=== PATIENT | female | born 1955 | race Caucasian/White ===

== ENCOUNTER 2020-02-15 14:21 | Inpatient (IN) | payer MEDICARE, MEDICAID, SELFPAY ==
[2020-02-15 14:24] VITALS: BP 188/119; PULSE 75; RESP 16; TEMP 37; O2SAT 99; BMI 44.3
--- NOTE | 2020-02-15 14:36 | ECG_ITS ---
Measurements Intervals [place] Rate: 72 P: -13 NH: 160 QRS: -22 QRSD: 93 T: 2 QT: 414 QTc: 453 SINUS RHYTHM INFERIOR MYOCARDIAL INFARCTION , PROBABLY OLD WITH POSTERIOR EXTENSION [40+ ms Q WAVE AND/OR ST/T ABNORMALITY IN II/aVFPROMINE No previous ECG available for comparison Electronically Signed On 02-16-2020 8:00:11 CDT by Tim Flaherty M.D. [email or web address]
[2020-02-15 14:59] LABS: Basophils % 0.4 %; Eosinophils % 0.2 %; Hemoglobin 15.4 g/dL (11.5-15.3); Lymphocytes # 2.4 10^3/uL (0.8-4.8); Mean Corpuscular HGB Conc 33.5 g/dL (30.0-36.0); Mean Corpuscular Hemoglobin 28.9 pg (28.0-34.0); Mean Corpuscular Volume 86.5 fL (81-99); Mean Platelet Volume 9.5 fL (7.4-10.4); Monocytes # 0.6 10^3/uL (0.2-0.9); Monocytes % 6.3 %; Neutrophils # 6.8 10^3/uL (1.8-7.7); Neutrophils % 68.9 %; Nucleated Red Blood Cells % 0 %; Platelet Count 230 10^3/cmm (130-400); Red Blood Count 5.32 10^6/uL (4.1-5.3); Red Cell Distribution Width 13.2 % (12.1-15.1); White Blood Count 9.8 10^3/uL (4.0-10.0)
--- NOTE | 2020-02-15 15:11 | W.ED.PSYCH ---
HPI - Psych General: Chief Complaint: Psychiatric Symptoms Stated Complaint: SI Time Seen by Provider: 02/15/20 14:23 Source: patient Mode of arrival: EMS History of Present Illness: HPI Narrative: This 64-year-old female patient with a history of depression presents to the emergency department with concerns of worsening depression and wanting to hurt her neighbor. She claims that every night for the last month or so her neighbor climbs on his roof and is making noise and has threatened to shoot people who he claims are coming to bother him. He has not threatened this patient. Last night she says she saw the neighbor on his roof and she called law enforcement, however when they arrived they did not see him and they left. She is not sleeping and would like an adjustment of her antidepressants. She takes paroxetine 40 mg daily. MD complaint: feels depressed Onset (ago): day(s) (1) Duration: constant and getting worse History of same: Yes Relieving factors: none Exacerbating factors: other (her neighbor) Associated psychiatric symptoms: depression and homicidal ideation Associated symptoms: Reports homicidal ideation Treatments prior to arrival: none Review of Systems General: Reports: 10 or more systems reviewed and unremarkable except in HPI and below Const: Denies: fever, chills or body aches Eyes: Denies: change in vision or blurry vision ENMT: Denies: throat pain, enlarged tonsils, painful swallowing, hoarseness, mouth pain or swelling of lips/tongue Card: Reports: chest pain; Denies: palpitations, irregular heart rhythm, edema or swelling of feet/ankles Resp: Denies: shortness of breath, productive cough or non-productive cough GI: Denies: abdominal pain, nausea or vomiting : Denies: flank pain, difficulty urinating, painful urination, urinary frequency, urinary urgency or urinary hesitancy Musc: Denies: neck pain, back pain or extremity swelling Skin/Breast: Denies: rash, itching or redness Neuro: Denies: headache, numbness in extremities or weakness in extremities Psych: Reports: homicidal ideation Endo: Denies: excessive urination, excessive thirst or tired all the time PFSH ED PFSH: Social History Smoking and tobacco status: never smoked Physical Exam Const: COMMON NORMALS: no apparent distress, average body habitus, oriented x3, no limitations, healthy appearing, alert and well nourished HENMT: COMMON NORMALS: normocephalic, head/scalp atraumatic and moist oral mucous membranes HEAD & SCALP: normocephalic and atraumatic Eye: COMMON NORMALS: PERRL, EOMs intact bilaterally, conjunctivae normal and no scleral icterus CONJUNCTIVA: Yes conjunctivae normal PUPIL: Yes PERRL Neck/C-Spine: COMMON NORMALS: full ROM, supple, no meningeal signs, no JVD and no carotid bruits Chest: COMMONS NORMALS: inspection of chest normal and palpation of chest normal Resp: COMMON NORMALS: normal respiratory effort, no retractions, no use of accessory muscles, clear to auscultation bilaterally and percussion normal AUSCULTATION: clear to auscultation bilaterally PERCUSSION: percussion normal Cardio: COMMON NORMALS: no JVD, regular rate, regular rhythm, S1 normal heart sound, S2 normal heart sound, no gallops, no clicks, no murmurs, no rub and peripheral pulses 2+ throughout RATE: regular rate RHYTHM: regular rhythm HEART SOUNDS: S1 normal and S2 normal PERIPHERAL PULSES: pulses 2+ throughout GI: COMMON NORMALS: normal to inspection, nondistended, normoactive bowel sounds, soft to palpation, non-tender, no hepatosplenomegaly, no masses and no bruits PALPATION: Yes soft and Yes no hepatosplenomegaly : COMMON NORMALS: Yes no CVA tenderness BLADDER/KIDNEY EXAM: Yes no CVA tenderness Back/Pelvis: COMMON NORMALS: no CVA tenderness Extremity: COMMON NORMALS: normal to inspection, full ROM, normal capillary refill, no calf tenderness and no pedal edema Neuro: COMMON NORMALS: oriented x3 SENSORIUM/ORIENTATION: Yes alert MENINGEAL SIGNS: Yes no meningeal signs Skin: COMMON NORMALS: no rashes or lesions noted, no wounds, skin turgor normal, no jaundice, no petechiae and no mottling GENERAL SKIN EXAM: no rashes or lesions noted and turgor normal MDM - Psych MDM Narrative: Medical decision making narrative: 64-year-old female patient who is independent with her ADLs and presents to the emergency department with concerns of worsening depression. She was medically cleared and is admitted to the neuropsychiatric unit for further evaluation and management Medical Records: Attestation: I reviewed the patient's medical records. Lab Data: Labs: Lab Results 02/15/20 02/15/20 02/15/20 Range/Units 14:53 14:53 15:10 WBC 9.8 (4.0-10.0) 10^3/ uL RBC 5.32 H (4.1-5.3) 10^6/u L Hgb 15.4 H (11.5-15.3) g/dL Hct 46.0 (37.0-47.0) % MCV 86.5 (81-99) fL MCH 28.9 (28.0-34.0) pg MCHC 33.5 (30.0-36.0) g/dL RDW 13.2 (12.1-15.1) % Plt Count 230 (130-400) 10^3/c mm MPV 9.5 (7.4-10.4) fL Neut % (Auto) 68.9 % Lymph % (Auto) 24.0 % Wetzel % (Auto) 6.3 % Eos % (Auto) 0.2 % Baso % (Auto) 0.4 % Neut # (Auto) 6.8 (1.8-7.7) 10^3/u L Lymph # (Auto) 2.4 (0.8-4.8) 10^3/u L Wetzel # (Auto) 0.6 (0.2-0.9) 10^3/u L Eos # (Auto) 0.0 (0.0-0.8) 10^3/u L Baso # (Auto) 0.0 (0.0-0.1) 10^3/u L Nucleated RBC % (a uto) 0 % Nucleated RBCs # 0.0 /100WBC Sodium 140 (136-145) mmol/L Potassium 4.0 (3.5-5.1) mmol/L Chloride 101 (98-107) mmol/L Carbon Dioxide 24 (22-29) mmol/L Anion Gap 19.0 (5-19) BUN 7 L (8-23) mg/dL Creatinine 1.1 H (0.5-0.9) mg/dL GFR Calculation 49.7 L (90-130) mL/min Glucose 113 (65-115) mg/dL Calculated Osmolal ity 287 (285-295) mOsm/k g Calcium 10.3 (8.5-10.5) mg/dL Total Bilirubin 1.1 (0.15-1.2) mg/dL AST 40 H (0-32) U/L ALT 33 (0-33) U/L Alkaline Phosphata se 61 (35-105) IU/L Total Protein 8.2 (6.6-8.7) g/dL Albumin 4.7 (3.5-5.2) g/dL Globulin 3.5 (1.3-4.6) g/dL TSH 1.65 (0.27-4.20) uIU/ mL Urine Color Yellow (Yellow) Urine Appearance Clear (CLEAR) Urine pH 5 (5-7) Ur Specific Gravit y 1.025 (1.005-1.030) Urine Protein 1+ H (Negative) Urine Glucose (UA) Norm (Normal) Urine Ketones 1+ H (Negative) Urine Blood Neg (Negative) Urine Nitrate Negative (Negative) Urine Bilirubin 1+ H (NEGATIVE) Urine Urobilinogen 1 H (Negative) mg/dL Ur Leukocyte Hodan ase Trace H (Negative) Urine RBC None (0-2) /hpf Urine WBC 0-4 H (0-5) /hpf Ur Squamous Epith Cells 5-10 H (0-5) Ur Transition Epit h Cell 5-10 /hpf Amorphous Sediment 1+ Urine Bacteria Trace (NONE) Hyaline Casts 10-15 H Urine Mucus Trace Salicylates < 0.3 L (3-10) mg/dL Urine Opiates Scre en (Negative) ng/mL Acetaminophen < 5.0 L (10-30) ug/mL Ur Barbiturates Sc reen (Negative) ng/mL Ur Phencyclidine S crn (Negative) ng/mL Ur Amphetamines Sc reen (Negative) ng/mL U Benzodiazepines Scrn (Negative) ng/mL Urine Cocaine Scre en (Negative) ng/mL U Marijuana (THC) Screen (Negative) ng/mL Ethyl Alcohol < 10 (0-10) mg/dL 02/15/20 Range/Units 15:10 WBC (4.0-10.0) 10^3/ uL RBC (4.1-5.3) 10^6/u L Hgb (11.5-15.3) g/dL Hct (37.0-47.0) % MCV (81-99) fL MCH (28.0-34.0) pg MCHC (30.0-36.0) g/dL RDW (12.1-15.1) % Plt Count (130-400) 10^3/c mm MPV (7.4-10.4) fL Neut % (Auto) % Lymph % (Auto) % Wetzel % (Auto) % Eos % (Auto) % Baso % (Auto) % Neut # (Auto) (1.8-7.7) 10^3/u L Lymph # (Auto) (0.8-4.8) 10^3/u L Wetzel # (Auto) (0.2-0.9) 10^3/u L Eos # (Auto) (0.0-0.8) 10^3/u L Baso # (Auto) (0.0-0.1) 10^3/u L Nucleated RBC % (a uto) % Nucleated RBCs # /100WBC Sodium (136-145) mmol/L Potassium (3.5-5.1) mmol/L Chloride (98-107) mmol/L Carbon Dioxide (22-29) mmol/L Anion Gap (5-19) BUN (8-23) mg/dL Creatinine (0.5-0.9) mg/dL GFR Calculation (90-130) mL/min Glucose (65-115) mg/dL Calculated Osmolal ity (285-295) mOsm/k g Calcium (8.5-10.5) mg/dL Total Bilirubin (0.15-1.2) mg/dL AST (0-32) U/L ALT (0-33) U/L Alkaline Phosphata se (35-105) IU/L Total Protein (6.6-8.7) g/dL Albumin (3.5-5.2) g/dL Globulin (1.3-4.6) g/dL TSH (0.27-4.20) uIU/ mL Urine Color (Yellow) Urine Appearance (CLEAR) Urine pH (5-7) Ur Specific Gravit y (1.005-1.030) Urine Protein (Negative) Urine Glucose (UA) (Normal) Urine Ketones (Negative) Urine Blood (Negative) Urine Nitrate (Negative) Urine Bilirubin (NEGATIVE) Urine Urobilinogen (Negative) mg/dL Ur Leukocyte Hodan ase (Negative) Urine RBC (0-2) /hpf Urine WBC (0-5) /hpf Ur Squamous Epith Cells (0-5) Ur Transition Epit h Cell /hpf Amorphous Sediment Urine Bacteria (NONE) Hyaline Casts Urine Mucus Salicylates (3-10) mg/dL Urine Opiates Scre en Negative (Negative) ng/mL Acetaminophen (10-30) ug/mL Ur Barbiturates Sc reen Negative (Negative) ng/mL Ur Phencyclidine S crn Positive H (Negative) ng/mL Ur Amphetamines Sc reen Negative (Negative) ng/mL U Benzodiazepines Scrn Negative (Negative) ng/mL Urine Cocaine Scre en Negative (Negative) ng/mL U Marijuana (THC) Screen Negative (Negative) ng/mL Ethyl Alcohol (0-10) mg/dL Discharge Plan Discharge Patient Disposition: Admitted As Inpatient Admit Provider: Balbir Escobedo Clinical Impression: Depression Condition: Stable Interventions: ED Discharge Assessment Last Done: 02/15/20 18:02 Discharge Date/Time: 02/15/20 18:02 Coding Level of Care Code ED Full Stack Software Developer for Bhavin Fwd Exam Comprehensive
[2020-02-15 15:22] LABS: Alanine Aminotransferase 33 U/L (0-33); Albumin Level 4.7 g/dL (3.5-5.2); Alkaline Phosphatase 61 IU/L (35-105); Aspartate Amino Transferase 40 U/L (0-32); Blood Urea Nitrogen 7 mg/dL (8-23); Calcium 10.3 mg/dL (8.5-10.5); Carbon Dioxide 24 mmol/L (22-29); Chloride 101 mmol/L (98-107); Globulin 3.5 g/dL (1.3-4.6); Glomerular Filtration Rate 49.7 mL/min (90-130); Glucose 113 mg/dL (65-115); Osmolality Calculated 287 mOsm/kg (285-295); Sodium 140 mmol/L (136-145); Thyroid Stimulating Hormone 1.65 uIU/mL (0.27-4.20); Total Bilirubin 1.1 mg/dL (0.15-1.2); Total Protein 8.2 g/dL (6.6-8.7)
[2020-02-15 15:36] LABS: Bilirubin Urine 1+ (NEGATIVE); Blood Urine Neg (Negative); Glucose Urine UA Norm (Normal); Ketones Urine 1+ (Negative); Nitrate Urine Negative (Negative); Protein Urine 1+ (Negative); Specific Gravity, Urine 1.025 (1.005-1.030); Urine Appearance Clear (CLEAR); Urine Color Yellow (Yellow); pH Urine 5 (5-7)
[2020-02-15 15:37] LABS: Add Urine Microscopic? YES; Leukocyte Esterase Urine Trace (Negative); Urobilinogen Urine 1 mg/dL (Negative)
[2020-02-15 15:38] LABS: Amphetamines Screen Urine Negative (Negative); Barbiturates Screen Urine Negative (Negative); Benzodiazepines Screen Urine Negative (Negative); Cocaine Screen Urine Negative (Negative); Opiate Screen Urine Negative (Negative); PCP Screen Urine Positive (Negative); THC Screen Urine Negative (Negative)
[2020-02-15 15:41] LABS: Add Urine Culture? No; Amorphous Sediment Urine 1+; Bacteria Urine TRACE; Mucus Urine TRACE; WBC Urine 0-4 /hpf (0-5)
[2020-02-15 15:48] LABS: Acetaminophen < 5.0 ug/mL (10-30); Alcohol Level < 10 mg/dL (0-10); Salicylate < 0.3 mg/dL (3-10)
[2020-02-15 16:05] VITALS: BP 135/77; PULSE 71; RESP 18; O2SAT 93
[2020-02-15 17:25] VITALS: BP 132/81; PULSE 86; RESP 18; TEMP 37.1; O2SAT 93
[2020-02-15] MEDS: trazodone 50 mg Tablet PO (20:50)
[2020-02-15 20:55] VITALS: BP 118/73; PULSE 78; RESP 18; TEMP 37.5; O2SAT 95
[2020-02-15] MEDS: blistex lip oint 7 gm Tube 1 APPLIC TOPICAL (23:19)
[2020-02-16 06:00] VITALS: BP 105/65; PULSE 85; RESP 21; TEMP 37; O2SAT 94
[2020-02-16] MEDS: levothyroxine 88 mcg Tablet PO (07:53)
[2020-02-16] MEDS: metoprolol tartrate 50 mg Tablet PO ×2 (09:37→17:28)
[2020-02-16] MEDS: pantoprazole DR 40 mg Tablet PO (09:37)
[2020-02-16] MEDS: atorvastatin 40 mg Tablet PO (09:37)
[2020-02-16] MEDS: ergocalciferol (vitamin D2) 50,000 Unit Capsule 50000 UNIT PO (09:42)
--- NOTE | 2020-02-16 09:54 | PM.NHP ---
Providers/Chief Complaint Admitting Physician: Balbir Escobedo MD Primary Care Provider: Henry Kelly MD Chief Complaint: DEPRESSION HPI NPU History of Present Illness Chief complaint: ?I could take hydroxyzine. About 20 pills would do it.? History of present illness: Pauline Coker is a 64-year-old woman who was brought to the emergency room by police after she complained that there was a man on the roof next door to her shouting obscenities at her. She reports daily suicidal ideation. She knows that she could kill herself by taking hydroxyzine. She says that 20 pills would kill her and she has more than 100 pills at home. She denies presence of auditory or visual hallucinations. She denies feelings of hopelessness or worthlessness. She is bored. But she has been hedonic capacity. She reports difficulty sleeping. She says that she weighs in TV goes off at midnight. When she goes to sleep and wakes up at noon the next morning. She is in the active care of psychiatrist Rachel Hernandez. She says the only antidepressant that helped her Paxil and Cymbalta. She is taking Paxil 40 mg daily at this time. She enjoys getting up in the morning and watching TV all day. She enjoys reality shows. She says she is tired of living where she lives. She has nothing to do and she has no friends. Her primary hope during this admission is that the psychiatric social worker supervisor will find her some place to live and some more help. She says she would like to live in a [facility] or a care home. However she values her independence and takes pride in the fact that she goes wherever she wants when she wants to. 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 She makes vague reference to a history of alcohol abuse. She does admit having purchased a bottle of vodka last week. Her urine drug screen was negative for alcohol on presentation. She is does say that she takes a drink now and then but does not feel that she has an alcohol problem now. She denies signs or symptoms of alcohol withdrawal. Urine drug screen was also positive for PCP but she is confused about where that could?ve come from and she denies all illicit drug use. ER report: HPI Narrative: This 64-year-old female patient with a history of depression presents to the emergency department with concerns of worsening depression and wanting to hurt her neighbor. She claims that every night for the last month or so her neighbor climbs on his roof and is making noise and has threatened to shoot people who he claims are coming to bother him. He has not threatened this patient. Last night she says she saw the neighbor on his roof and she called law enforcement, however when they arrived they did not see him and they left. She is not sleeping and would like an adjustment of her antidepressants. Laboratory Tests 02/15/20 02/15/20 14:53 15:10 Urine Opiates Screen Negative Ur Barbiturates Screen Negative Ur Phencyclidine Scrn Positive H Ur Amphetamines Screen Negative U Benzodiazepines Scrn Negative Urine Cocaine Screen Negative U Marijuana (THC) Screen Negative Ethyl Alcohol < 10 Mental health history: She has ?2 or 3? previous admissions. She said that one time she was addicted to Xanax. She didn?t know getting addicted to Xanax but there she was and that how she wound up in the hospital. She has no history of seen a counselor but she does get medications from her local nurse practitioner and her monthly visit with her psychiatrist. Family psychiatric history is positive for her father being an alcoholic. Meds NPU Home Medications Medication Instructions Recorded Confirmed Type dicyclomine 20 mg PO Q6H PRN 02/15/20 02/15/20 History ergocalciferol (vitamin D2) 50,000 unit PO Q7D 02/15/20 02/15/20 History exenatide microspheres [Bydureon] 2 mg SUBCUT Q7D 02/15/20 02/15/20 History hydroxyzine HCl 50 mg PO QID PRN 02/15/20 02/15/20 History levothyroxine 88 mcg PO DAILY 02/15/20 02/15/20 History metoprolol tartrate 50 mg PO BID 02/15/20 02/15/20 History pantoprazole 40 mg PO DAILY 02/15/20 02/15/20 History paroxetine HCl 40 mg PO DAILY 02/15/20 02/15/20 History primidone 50 mg PO BID 02/15/20 02/15/20 History rosuvastatin 10 mg PO DAILY 02/15/20 02/15/20 History Allergies Allergy/AdvReac Type Severity Reaction Status Date / Time No Known Allergies Allergy Unverified 02/15/20 15:28 PFSH NPU PFSH: Social History Smoking and tobacco status: never smoked Other Psychiatric History: Other Psychiatric History: Mental health history: She has ?2 or 3? previous admissions. She said that one time she was addicted to Xanax. She didn?t know getting addicted to Xanax but there she was and that how she wound up in the hospital. She has no history of seen a counselor but she does get medications from her local nurse practitioner and her monthly visit with her psychiatrist. Family psychiatric history is positive for her father being an alcoholic. Social history: Patient grew up in [place] and is a high school graduate. She has 2 daughters. The oldest lives in [place] and has no contact with the patient. The youngest lives in [place] and has no contact with the patient. ?Their management me because things happen to them when they were young. Everyone has things happen to them.? Her best friend is Karen who is the quality assurance manager of the apartment building in which she lives. Legal history: She was incarcerated for a DWI in 2014 according to public record. Mental Status Exam MSE Comments: ?I need a safe place to live.? ?I?ve had depression all my life.? ?I don?t sleep at all.? ?I live by myself. I do what I want.? Appearance: The patient is an obese woman appearing approximately her stated age. She is believed to be a reliable informant to the best of her ability. Hygiene is fair; no gross neurological deficits., gait is unremarkable; AIMS=0 Speech: Speech is of normal rate and rhythm and easily understood. Thought processes: Thought processes are concrete. Judgment is adequate for safety. Psychotic processes: There is no indication of guarding or paranoia. There is no attention to the internal stimuli. Auditory and visual hallucinations are denied. Judgment: Insight is poor with expectations and entitlement to that others will solve problems for her.. Problem solving skills are adequate for safety. Orientation: The patient is oriented to person, place time and situation. Memory: no deficits noted in immediate, intermediate, or remote spheres. Attention: The patient is alert and interpersonally engaged. Language: Verbalizations are coherent. Fund of knowledge: Fund of knowledge is poor. Affect/Mood: Affect is euthymic with a depressed mood. Positive suicidal ideation with potential plan. Affective range good Psychosis: perception impaired regularly through poor insight and cognitive deficit; reality testing intact. Vitals/I&O/Wt Last Vital Signs Temp 98.6 F 02/16/20 06:00 Pulse 85 02/16/20 06:00 Resp 21 H 02/16/20 06:00 BP 105/65 02/16/20 06:00 Pulse Ox 94 02/16/20 06:00 Weight last 48 hrs Weight 136.078 kg Data NPU : 02/15/20 14:53 02/15/20 14:53 A&P Additional A&P Information Diagnoses: Major depression?recurrent, moderate severity Assessment: Pauline Coker is a 64-year-old woman who reports making claims of considering suicide with a plan. However she delineates her symptoms of depression as being potentially resolvable simply by having a new place to live. Unfortunately, she has very little insight as to how she could resolve this problem and has a sense of entitlement that others should solve it for her. She feels that her antidepressant does provide some benefit but that the addition of medication may boost its effect. She was agreeable to the plan below. Due to the psychiatric conditions and treatment listed in the Assessment and Plan - the patient requires continued hospitalization. Will provide a safe and therapeutic environment for patient.. Will continue inpatient treatment to allow for medication adjustment and monitoring. Will continue q15 min safety checks. Will continue Paxil 40 mg daily. Will add risperidone 1 mg at bedtime and monitor for medication side effects. Monitor patient's mood, sleep, appetite, and behavior closely. Encourage patient to participate in individual and group therapeutic sessions on the [place]. Estimated length of stay 5 days The expected benefits and potential side effects of patient's psychiatric medications were discussed with the patient. The patient understands and consents to treatment.CRITERIA FOR DISCHARGE: stable on medications and no longer an imminent threat to self or other Involuntary Hold Information 96 Hour Hold: 96 Hour Involuntary Admission: No Attestations NPU Medical Necessity Statement*: patient will remain in the hospital another 2-3 nights to establish medication efficacy. Coding Level of Care Code Acute Wireless Sales Associate for Bhavin Mobley
[2020-02-16 13:29] VITALS: BP 113/73; PULSE 81; RESP 18; TEMP 36.8; O2SAT 95
[2020-02-16] MEDS: neomycin-poly-bacitracin oint 28 gm 1 APPLIC TOPICAL (17:28)
[2020-02-16 21:05] VITALS: BP 99/62; PULSE 77; RESP 20; TEMP 37.3; O2SAT 94
[2020-02-16] MEDS: risperiDONE 1 mg Tablet PO (21:06)
[2020-02-16] MEDS: PARoxetine 20 mg Tablet 40 MG PO (21:06)
--- NOTE | 2020-02-16 21:06 | PC.NURSE ---
Pt given scheduled paxil and risperdal.
[2020-02-17] MEDS: acetaminophen 325 mg Tablet 650 MG PO (01:39)
[2020-02-17 06:00] VITALS: BP 102/66; PULSE 80; RESP 20; TEMP 37.1; O2SAT 94
[2020-02-17] MEDS: pantoprazole DR 40 mg Tablet PO (08:27)
[2020-02-17] MEDS: levothyroxine 88 mcg Tablet PO (08:27)
[2020-02-17] MEDS: metoprolol tartrate 50 mg Tablet PO (08:27)
[2020-02-17] MEDS: atorvastatin 40 mg Tablet PO (08:27)
[2020-02-17] MEDS: neomycin-poly-bacitracin oint 28 gm 1 APPLIC TOPICAL (08:28)
--- NOTE | 2020-02-17 10:06 | PM.NDC ---
Diagnoses at Discharge Discharge Diagnosis (1) Adjustment disorder with mixed disturbance of emotions and conduct: Status: Acute Problem details: resolved Reason for Visit Reason for Visit: Reason For Visit: DEPRESSION Brief History: [address] [place] [address] History & Physical Report Signed Patient: Pauline Coker [facility]#: [id number] : 3Acct#:[id number] Age/Sex: 65 / FADM Date: 02/15/20 Loc: NPRoom/Bed: 124-1 Encounter Date: 02/16/[address]: Balbir Escobedo MD Report Number: [id number] Providers/Chief Complaint Admitting Physician: Balbir Escobedo MD Primary Care Provider: Henry Kelly MD Chief Complaint: DEPRESSION HPI NPU History of Present Illness Chief complaint: ?I could take hydroxyzine. About 20 pills would do it.? History of present illness: Pauline Coker is a 64-year-old woman who was brought to the emergency room by police after she complained that there was a man on the roof next door to her shouting obscenities at her. She reports daily suicidal ideation. She knows that she could kill herself by taking hydroxyzine. She says that 20 pills would kill her and she has more than 100 pills at home. She denies presence of auditory or visual hallucinations. She denies feelings of hopelessness or worthlessness. She is bored. But she has been hedonic capacity. She reports difficulty sleeping. She says that she weighs in TV goes off at midnight. When she goes to sleep and wakes up at noon the next morning. She is in the active care of psychiatrist Rachel Hernandez. She says the only antidepressant that helped her Paxil and Cymbalta. She is taking Paxil 40 mg daily at this time. She enjoys getting up in the morning and watching TV all day. She enjoys reality shows. She says she is tired of living where she lives. She has nothing to do and she has no friends. Her primary hope during this admission is that the case management social worker will find her some place to live and some more help. She says she would like to live in a assisted or a long term. However she values her independence and takes pride in the fact that she goes wherever she wants when she wants to. 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 She makes vague reference to a history of alcohol abuse. She does admit having purchased a bottle of vodka last week. Her urine drug screen was negative for alcohol on presentation. She is does say that she takes a drink now and then but does not feel that she has an alcohol problem now. She denies signs or symptoms of alcohol withdrawal. Urine drug screen was also positive for PCP but she is confused about where that could?ve come from and she denies all illicit drug use. ER report: HPI Narrative: This 64-year-old female patient with a history of depression presents to the emergency department with concerns of worsening depression and wanting to hurt her neighbor. She claims that every night for the last month or so her neighbor climbs on his roof and is making noise and has threatened to shoot people who he claims are coming to bother him. He has not threatened this patient. Last night she says she saw the neighbor on his roof and she called law enforcement, however when they arrived they did not see him and they left. She is not sleeping and would like an adjustment of her antidepressants. Hospital Course Discharge Summary Patient was admitted for a of individual and group therapies as part of the adult psychiatric unit protocol. She was provided a supportive requirement and a clinical assessment. She was found to be suffering primarily from adjustment disorder with poor problem-solving skills. It appears that she was in a difficult psychosocial situation and was wanting assistance. An fact, she has ongoing psychological therapy and the medications that she is being prescribed have been effective. Risperidone was provided on a when necessary basis at bedtime for accommodation of sleep and to improve antidepressant efficacy. It was well tolerated. By hospital day #3, she was free of all symptoms of depression. She denied having suicidal thoughts. Involuntary Hold Information 96 Hour Hold: 96 Hour Involuntary Admission: No Mental Status Exam MSE Comments: Discharge Mental Status Exam: Appearance: hygiene is good; no gross neurological deficits., gait is unremarkable; AIMS=0 Speech: Speech is of normal rate and rhythm and easily understood. Thought processes: Thought processes are Robert Lee. Judgment is adequate for safety. Associations: intact Psychotic processes: There is no indication of guarding or paranoia. There is no attention to the internal stimuli. Auditory and visual hallucinations are denied. Judgment: Insight is fair. Problem solving skills are adequate for safety. Orientation: The patient is oriented to person, place time and situation. Memory: no deficits noted in immediate, intermediate, or remote spheres. Attention: The patient is alert and interpersonally engaged. Language: Verbalizations are coherent. Fund of knowledge: Fund of knowledge is Poor. Affect/Mood: Affect is consistent with a euthymic mood. denied suicidal ideation Affective range is appropriate. Psychosis: perception unimpaired except through cognitive distortion And cognitive deficit; reality testing intact. Discharge Data Vitals: Last Vital Signs Temp 98.8 F 02/17/20 06:00 Pulse 80 02/17/20 06:00 Resp 20 H 02/17/20 06:00 BP 102/66 02/17/20 06:00 Pulse Ox 94 02/17/20 06:00 Discharge Plan Discharge Patient Disposition: Home, Self-Care Condition: Stable Prescriptions: New risperidone 1 mg Tablet 1 mg PO BEDTIME Qty: 30 RF: 4 Continued primidone 50 mg tablet 50 mg PO BID RF: 0 hydroxyzine HCl 50 mg tablet 50 mg PO QID PRN (Reason: Anxiety) RF: 0 levothyroxine 88 mcg tablet 88 mcg PO DAILY RF: 0 dicyclomine 20 mg tablet 20 mg PO Q6H PRN (Reason: Stomach Cramps) RF: 0 metoprolol tartrate 50 mg tablet 50 mg PO BID RF: 0 ergocalciferol (vitamin D2) 1,250 mcg (50,000 unit) capsule 50,000 unit PO Q7D RF: 0 paroxetine HCl 40 mg tablet 40 mg PO DAILY RF: 0 rosuvastatin 10 mg tablet 10 mg PO DAILY RF: 0 Bydureon 2 mg/0.65 mL pen injector 2 mg SUBCUT Q7D RF: 0 pantoprazole 40 mg Tablet,Delayed Release (Dr/Ec) 40 mg PO DAILY RF: 0 Discharge Orders: Discharge Order (Routine); Ordered 02/17/20 Ordered By: Reynaldo Grey Referrals: [facility] Psychologist [Other] - 02/23/20 4:00 am (continue your services with Rachel Humphreys clinical psychologist. An earlier appointment was scheduled. ) [facility] in [facility] [Other] (you will need to call about getting psychiatric medication mgmt and case mgmt. Your clinical psychologist's office suggested that you get your medications managed by [facility]. It was also suggested that you get a catalytic case operator from [facility]. It will be important to call as soon as possible about getting your services started. You will need a refill on your medications before a month is complete but you want to call about getting referral immediately upon discharge when you get home. There are walk-in hours usually on Tuesdays and but because of the COVID 19 issues you need to call [facility] for instructions. If needed, follow-up with your primary care provider for prescription refills until you are able to get seen for psychiatric medication management. ) Discharge Attestations NPU Time Spent in Discharge Care*: less than 30 min Coding Level of Care Code Acute Radio Intelligence Operator for Chg Fwd Diagnoses Adjustment disorder with mixed disturbance of emotions and conduct F43.25
[2020-02-17 10:30] VITALS: BP 102/66; PULSE 80; RESP 20; TEMP 37.1; O2SAT 94
--- NOTE | 2020-02-17 10:39 | PC.SOCIAL ---
Dimitry alejandre called. Trip ID #[id number]. miller supervisor time between 10:45am and 1:45pm.
--- NOTE | 2020-02-17 12:04 | PC.SOCIAL ---
checked on ride. [employer] said that class a truck driver will be here between 1:15-1:30 p.m. nurse's station was notified in order to give information to patient.
== END 2020-02-17 14:17 | disposition home or self-care (01) | DRG 882 ==
LOC: ER 17:38 → NP 17:38
PROVIDERS: Admitting Provider Psychiatry & Neurology Psychiatry; Emergency Provider Family Medicine; PCP Family Medicine; Visit Provider Psychiatry & Neurology Psychiatry
DX: F43.25 Adjustment disorder with mixed disturbance of emotions and conduct (principal); R45.851 Suicidal ideations
CPT/HCPCS: 12345; 36415; 80053; 80306; 80307; 81001; 84443; 85025; 93005; 99284; A9270

== ENCOUNTER 2020-03-26 15:45 | Inpatient (IN) | payer MEDICARE, MEDICAID, SELFPAY ==
[2020-03-26 15:57] VITALS: BP 121/84; PULSE 83; RESP 16; TEMP 37; O2SAT 94; BMI 44.3
[2020-03-26] MEDS: ziprasidone 20 mg/mL SDV 10 MG IM (16:31)
--- NOTE | 2020-03-26 16:43 | W.ED.PSYCH ---
HPI - Psych General: Chief Complaint: Psychiatric Symptoms Stated Complaint: HALLUCINATIONS Time Seen by Provider: 03/26/20 16:05 History of Present Illness: HPI Narrative: This patient is a 65-year-old female who lives at home alone. She presents today stating that she can hear people talking on her roof. Per police there is no one on her roof. She says that she called the ambulance herself to come here and find out if she is crazy . She was here several weeks ago with similar symptoms. She said she went home after 2 days because she wanted to be in her own house and be able to take a shower. She tells me now that she does not even care if she takes another shower. On her recent admission she was also suicidal. She has vague suicidal thoughts now but no specific plan that she will share with me. She denied any prior psychiatric history to me, however from reading her recent admission it appears that she does have longstanding psychiatric problems. complaint: other (Hallucinations and delusions) Onset (ago): unknown Duration: constant Relieving factors: none Exacerbating factors: none Associated psychiatric symptoms: depression and suicidal ideation Associated symptoms: Reports auditory hallucinations, delusions and depression If self harm: has plan (No plan) Review of Systems General: Reports: 10 or more systems reviewed and unremarkable except in HPI and below Const: Denies: fever(s), chills, fatigue or malaise Eyes: Denies: change in vision ENMT: Denies: odynophagia Card: Denies: chest pain or swelling of feet/ankles Resp: Denies: dyspnea, productive cough or non-productive cough GI: Denies: abdominal pain, nausea or vomiting : Denies: flank pain or difficulty voiding Musc: Denies: neck pain or back pain Skin/Breast: Denies: rash Neuro: Denies: headache(s), numbness in extremities or weakness in extremities Psych: Reports: anxiety, depression, hopelessness, loss of interest and auditory hallucinations Ambrose/Lymph: Denies: easy bruising or easy bleeding PFSH ED PFSH: Medical History Adjustment disorder with mixed disturbance of emotions and conduct resolved Social History Smoking and tobacco status: never smoked Physical Exam Const: COMMON NORMALS: patient oriented x3 and alert GENERAL APPEARANCE: anxious NUTRITIONAL APPEARANCE: obese morbidly obese HENMT: HEAD & SCALP: normal to inspection FACE & SINUS: normal facial exam Eye: GENERAL EYE: appearance normal, both eyes and all related structures Neck/C-Spine: COMMON NORMALS: supple, no meningeal signs and no JVD Chest: COMMONS NORMALS: normal inspection of the chest Resp: COMMON NORMALS: normal respiratory effort and clear to auscultation bilaterally EFFORT & INSPECTION: Yes able to speak in complete sentences AUSCULTATION: clear to auscultation bilaterally Cardio: COMMON NORMALS: no JVD, regular rate, regular rhythm and No murmurs present (Cardio) RATE: regular rate RHYTHM: regular rhythm GI: COMMON NORMALS: Normal to inspection, nondistended, normoactive bowel sounds present, Soft to palpation and non-tender INSPECTION: Yes normal to inspection AUSCULTATION: Yes normoactive bowel sounds PALPATION: Yes Soft to palpation Back/Pelvis: COMMON NORMALS: thoracic and lumbar spine normal to inspection Extremity: COMMON NORMALS: normal to inspection Neuro: COMMON NORMALS: patient oriented x3 SENSORIUM/ORIENTATION: Yes alert MENINGEAL SIGNS: Yes no meningeal signs Psych: COMMON NORMALS: mental status grossly normal, cooperative and speech normal SPEECH: Yes normal speech THOUGHT PROCESS: disorganized and Illogical thought process present THOUGHT CONTENT: Yes delusions and Yes Hallucination(s) present INSIGHT: Poor insight present (Psych) JUDGEMENT: Poor judgement present (Psych) Skin: COMMON NORMALS: no rashes or lesions noted and turgor normal GENERAL SKIN EXAM: no rashes or lesions noted and turgor normal MDM - Psych Lab Data: Labs: Lab Results 03/26/20 03/26/20 03/26/20 Range/Units 16:50 16:50 16:50 WBC 10.4 H (4.0-10.0) 10^3/ uL RBC 5.33 H (4.1-5.3) 10^6/u L Hgb 14.8 (11.5-15.3) g/dL Hct 46.1 (37.0-47.0) % MCV 86.5 (81-99) fL MCH 27.8 L (28.0-34.0) pg MCHC 32.1 (30.0-36.0) g/dL RDW 11.9 L (12.1-15.1) % Plt Count 222 (130-400) 10^3/c mm MPV 9.3 (7.4-10.4) fL Neut % (Auto) 71.0 % Lymph % (Auto) 21.7 % [place] % (Auto) 5.5 % Eos % (Auto) 0.8 % Baso % (Auto) 0.7 % Neut # (Auto) 7.4 (1.8-7.7) 10^3/u L Lymph # (Auto) 2.3 (0.8-4.8) 10^3/u L [place] # (Auto) 0.6 (0.2-0.9) 10^3/u L Eos # (Auto) 0.1 (0.0-0.8) 10^3/u L Baso # (Auto) 0.1 (0.0-0.1) 10^3/u L Nucleated RBC % (a uto) 0 % Nucleated RBCs # 0.0 /100WBC PT 14.50 H (10.5-13.3) SECO NDS INR 1.10 (0.8-1.2) Sodium 142 (136-145) mmol/L Potassium 3.7 (3.5-5.1) mmol/L Chloride 101 (98-107) mmol/L Carbon Dioxide 25 (22-29) mmol/L Anion Gap 19.7 H (5-19) BUN 10 (8-23) mg/dL Creatinine 1.2 H (0.5-0.9) mg/dL GFR Calculation 44.8 L (90-130) mL/min Glucose 146 H (65-115) mg/dL Calculated Osmolal ity 293 (285-295) mOsm/k g Calcium 9.5 (8.5-10.5) mg/dL Total Bilirubin 0.5 (0.15-1.2) mg/dL AST 37 H (0-32) U/L ALT 29 (0-33) U/L Alkaline Phosphata se 52 (35-105) IU/L Total Protein 7.3 (6.6-8.7) g/dL Albumin 4.7 (3.5-5.2) g/dL Globulin 2.6 (1.3-4.6) g/dL TSH 1.61 (0.27-4.20) uIU/ mL Urine Color (Yellow) Urine Appearance (CLEAR) Urine pH (5-7) Ur Specific Gravit y (1.005-1.030) Urine Protein (Negative) Urine Glucose (UA) (Normal) Urine Ketones (Negative) Urine Blood (Negative) Urine Nitrate (Negative) Urine Bilirubin (NEGATIVE) Urine Urobilinogen (Negative) mg/dL Ur Leukocyte Hodan ase (Negative) Urine RBC (0-2) /hpf Urine WBC (0-5) /hpf Ur Squamous Epith Cells (0-5) Urine Bacteria (NONE) Salicylates < 0.3 L (3-10) mg/dL Urine Opiates Scre en (Negative) ng/mL Acetaminophen < 5.0 L (10-30) ug/mL Ur Barbiturates Sc reen (Negative) ng/mL Ur Phencyclidine S crn (Negative) ng/mL Ur Amphetamines Sc reen (Negative) ng/mL U Benzodiazepines Scrn (Negative) ng/mL Urine Cocaine Scre en (Negative) ng/mL U Marijuana (THC) Screen (Negative) ng/mL Ethyl Alcohol < 10 (0-10) mg/dL 03/26/20 03/26/20 Range/Units 17:52 17:52 WBC (4.0-10.0) 10^3/ uL RBC (4.1-5.3) 10^6/u L Hgb (11.5-15.3) g/dL Hct (37.0-47.0) % MCV (81-99) fL MCH (28.0-34.0) pg MCHC (30.0-36.0) g/dL RDW (12.1-15.1) % Plt Count (130-400) 10^3/c mm MPV (7.4-10.4) fL Neut % (Auto) % Lymph % (Auto) % [place] % (Auto) % Eos % (Auto) % Baso % (Auto) % Neut # (Auto) (1.8-7.7) 10^3/u L Lymph # (Auto) (0.8-4.8) 10^3/u L [place] # (Auto) (0.2-0.9) 10^3/u L Eos # (Auto) (0.0-0.8) 10^3/u L Baso # (Auto) (0.0-0.1) 10^3/u L Nucleated RBC % (a uto) % Nucleated RBCs # /100WBC PT (10.5-13.3) SECO NDS INR (0.8-1.2) Sodium (136-145) mmol/L Potassium (3.5-5.1) mmol/L Chloride (98-107) mmol/L Carbon Dioxide (22-29) mmol/L Anion Gap (5-19) BUN (8-23) mg/dL Creatinine (0.5-0.9) mg/dL GFR Calculation (90-130) mL/min Glucose (65-115) mg/dL Calculated Osmolal ity (285-295) mOsm/k g Calcium (8.5-10.5) mg/dL Total Bilirubin (0.15-1.2) mg/dL AST (0-32) U/L ALT (0-33) U/L Alkaline Phosphata se (35-105) IU/L Total Protein (6.6-8.7) g/dL Albumin (3.5-5.2) g/dL Globulin (1.3-4.6) g/dL TSH (0.27-4.20) uIU/ mL Urine Color Yellow (Yellow) Urine Appearance Hazy A (CLEAR) Urine pH 5 (5-7) Ur Specific Gravit y 1.025 (1.005-1.030) Urine Protein Neg (Negative) Urine Glucose (UA) Norm (Normal) Urine Ketones Negative (Negative) Urine Blood Neg (Negative) Urine Nitrate Negative (Negative) Urine Bilirubin Neg (NEGATIVE) Urine Urobilinogen Norm (Negative) mg/dL Ur Leukocyte Hodan ase Negative (Negative) Urine RBC None (0-2) /hpf Urine WBC 5-10 H (0-5) /hpf Ur Squamous Epith Cells 5-10 H (0-5) Urine Bacteria 1+ H (NONE) Salicylates (3-10) mg/dL Urine Opiates Scre en Negative (Negative) ng/mL Acetaminophen (10-30) ug/mL Ur Barbiturates Sc reen Negative (Negative) ng/mL Ur Phencyclidine S crn Positive H (Negative) ng/mL Ur Amphetamines Sc reen Negative (Negative) ng/mL U Benzodiazepines Scrn Negative (Negative) ng/mL Urine Cocaine Scre en Negative (Negative) ng/mL U Marijuana (THC) Screen Negative (Negative) ng/mL Ethyl Alcohol (0-10) mg/dL Discharge Plan Discharge Patient Disposition: Admitted As Inpatient Admit Provider: Balbir Escobedo Discharge Date/Time: 03/26/20 19:21 Coding Level of Care Code ED Building Energy Retrofit Technician for Chg Fwd Exam Comprehensive
[2020-03-26 16:57] LABS: Basophils # 0.1 10^3/uL (0.0-0.1); Basophils % 0.7 %; Eosinophils # 0.1 10^3/uL (0.0-0.8); Eosinophils % 0.8 %; Hematocrit 46.1 % (37.0-47.0); Hemoglobin 14.8 g/dL (11.5-15.3); Lymphocytes # 2.3 10^3/uL (0.8-4.8); Lymphocytes % 21.7 %; Mean Corpuscular HGB Conc 32.1 g/dL (30.0-36.0); Mean Corpuscular Hemoglobin 27.8 pg (28.0-34.0); Mean Corpuscular Volume 86.5 fL (81-99); Mean Platelet Volume 9.3 fL (7.4-10.4); Monocytes # 0.6 10^3/uL (0.2-0.9); Monocytes % 5.5 %; Neutrophils # 7.4 10^3/uL (1.8-7.7); Nucleated Red Blood Cells % 0 %; Platelet Count 222 10^3/cmm (130-400); Red Blood Count 5.33 10^6/uL (4.1-5.3); Red Cell Distribution Width 11.9 % (12.1-15.1); White Blood Count 10.4 10^3/uL (4.0-10.0)
[2020-03-26 17:26] LABS: Alanine Aminotransferase 29 U/L (0-33); Albumin Level 4.7 g/dL (3.5-5.2); Alkaline Phosphatase 52 IU/L (35-105); Anion Gap 19.7 (5-19); Aspartate Amino Transferase 37 U/L (0-32); Blood Urea Nitrogen 10 mg/dL (8-23); Calcium 9.5 mg/dL (8.5-10.5); Carbon Dioxide 25 mmol/L (22-29); Chloride 101 mmol/L (98-107); Creatinine Clr Calc Pharmacy 67.6167; Globulin 2.6 g/dL (1.3-4.6); Glomerular Filtration Rate 44.8 mL/min (90-130); Glucose 146 mg/dL (65-115); Osmolality Calculated 293 mOsm/kg (285-295); Potassium 3.7 mmol/L (3.5-5.1); Sodium 142 mmol/L (136-145); Thyroid Stimulating Hormone 1.61 uIU/mL (0.27-4.20); Total Bilirubin 0.5 mg/dL (0.15-1.2); Total Protein 7.3 g/dL (6.6-8.7)
[2020-03-26 17:31] LABS: Acetaminophen < 5.0 ug/mL (10-30); Alcohol Level < 10 mg/dL (0-10); Salicylate < 0.3 mg/dL (3-10)
[2020-03-26 18:16] LABS: Add Urine Microscopic? YES; Bilirubin Urine Neg (NEGATIVE); Blood Urine Neg (Negative); Glucose Urine UA Norm (Normal); Ketones Urine Negative (Negative); Leukocyte Esterase Urine Negative (Negative); Nitrate Urine Negative (Negative); Protein Urine Neg (Negative); Specific Gravity, Urine 1.025 (1.005-1.030); Urine Appearance Hazy (CLEAR); Urine Color Yellow (Yellow); Urobilinogen Urine Norm (Negative); pH Urine 5 (5-7)
[2020-03-26 18:17] LABS: Bacteria Urine 1+
[2020-03-26 18:18] LABS: Add Urine Culture? No
[2020-03-26 18:20] LABS: Amphetamines Screen Urine Negative (Negative); Barbiturates Screen Urine Negative (Negative); Benzodiazepines Screen Urine Negative (Negative); Cocaine Screen Urine Negative (Negative); Opiate Screen Urine Negative (Negative); PCP Screen Urine Positive (Negative); THC Screen Urine Negative (Negative)
[2020-03-26 19:30] VITALS: BP 117/78; PULSE 89; RESP 22; TEMP 36.7; O2SAT 95
[2020-03-26 19:33] VITALS: BMI 44.3
[2020-03-26 22:00] VITALS: BP 117/78; PULSE 89; RESP 22; TEMP 36.7
[2020-03-27 06:00] VITALS: BP 109/73; PULSE 78; RESP 20; TEMP 36.2; O2SAT 95
--- NOTE | 2020-03-27 11:02 | P.HP_ITS ---
Providers/Chief Complaint Admitting Physician: Balbir Escobedo MD Primary Care Provider: Henry Kelly MD Chief Complaint: HALLUCINATIONS HPI NPU History of Present Illness Pauline Coker is a 65 year old female The patient presents to the emergency room having just been in the hospital in February for a couple of days. She reports that she probably was overly optimistic about how things would turn around, plus she did not like the way the medication seemed to feel. She reported that she was feeling overwhelmed and was dealing with a neighbor who was doing odd things like pounding on the ceilings and things of that nature. She is reporting she could hear people talking on her roof. She reports it is unclear to her whether that is real or not. It in some way has a relation to her not really liking to live alone and she states that she may have identified that she needs to go to some kind of assisted living arrangement or something like that. We had a long discussion about some of the challenges to that plan in the current COVID-19 crisis, and she understood. She reports there have not been significant changes since she was evaluated by Dr. Grey on February 15. An excerpt from that hospitalization is included. She endorses depression and anxiety and denies that she is currently on anything that is helping her with those issues. We discussed the possibility of adding a mood stabilizer tomorrow, and she is considering that possibility, but wants to really focus on our discussion about the risks, benefits, and alternatives of initiating Zoloft. She understood and agreed to proceed as is documented in this note. She did report some suicidal thoughts, both in the emergency room and currently, but endorses the ability to contract for safety on the unit. Per [facility] eval about 2 weeks ago: History of Present Illness Chief complaint: ?I could take hydroxyzine. About 20 pills would do it.? History of present illness: Pauline Coker is a 64-year-old woman who was brought to the emergency room by police after she complained that there was a man on the roof next door to her shouting obscenities at her. She reports daily suicidal ideation. She knows that she could kill herself by taking hydroxyzine. She says that 20 pills would kill her and she has more than 100 pills at home. She denies presence of auditory or visual hallucinations. She denies feelings of hopelessness or worthlessness. She is bored. But she has been hedonic capacity. She reports difficulty sleeping. She says that she weighs in TV goes off at midnight. When she goes to sleep and wakes up at noon the next morning. She is in the active care of psychiatrist Rachel Hernandez. She says the only antidepressant that helped her Paxil and Cymbalta. She is taking Paxil 40 mg daily at this time. She enjoys getting up in the morning and watching TV all day. She enjoys reality shows. She says she is tired of living where she lives. She has nothing to do and she has no friends. Her primary hope during this admission is that the protective services social worker will find her some place to live and some more help. She says she would like to live in a care home or a senior living. However she values her independence and takes pride in the fact that she goes wherever she wants when she wants to. 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 She makes vague reference to a history of alcohol abuse. She does admit having purchased a bottle of vodka last week. Her urine drug screen was negative for alcohol on presentation. She is does say that she takes a drink now and then but does not feel that she has an alcohol problem now. She denies signs or symptoms of alcohol withdrawal. Urine drug screen was also positive for PCP but she is confused about where that could?ve come from and she denies all illicit drug use. ER report: HPI Narrative: This 64-year-old female patient with a history of depression presents to the emergency department with concerns of worsening depression and wanting to hurt her neighbor. She claims that every night for the last month or so her neighbor climbs on his roof and is making noise and has threatened to shoot people who he claims are coming to bother him. He has not threatened this patient. Last night she says she saw the neighbor on his roof and she called law enforcement, however when they arrived they did not see him and they left. She is not sleeping and would like an adjustment of her antidepressants. Laboratory Tests 02/15/20 02/15/20 14:53 15:10 Urine Opiates Screen Negative Ur Barbiturates Screen Negative Ur Phencyclidine Scrn Positive H Ur Amphetamines Screen Negative U Benzodiazepines Scrn Negative Urine Cocaine Screen Negative U Marijuana (THC) Screen Negative Ethyl Alcohol < 10 Mental health history: She has ?2 or 3? previous admissions. She said that one time she was addicted to Xanax. She didn?t know getting addicted to Xanax but there she was and that how she wound up in the hospital. She has no history of seen a counselor but she does get medications from her local nurse practitioner and her monthly visit with her psychiatrist. Family psychiatric history is positive for her father being an alcoholic. Meds NPU Home Medications Medication Instructions Recorded Confirmed Type dicyclomine 20 mg PO Q6H PRN 02/15/20 02/15/20 History ergocalciferol (vitamin D2) 50,000 unit PO Q7D 02/15/20 02/15/20 History exenatide microspheres [Bydureon] 2 mg SUBCUT Q7D 02/15/20 02/15/20 History hydroxyzine HCl 50 mg PO QID PRN 02/15/20 02/15/20 History levothyroxine 88 mcg PO DAILY 02/15/20 02/15/20 History metoprolol tartrate 50 mg PO BID 02/15/20 02/15/20 History pantoprazole 40 mg PO DAILY 02/15/20 02/15/20 History paroxetine HCl 40 mg PO DAILY 02/15/20 02/15/20 History primidone 50 mg PO BID 02/15/20 02/15/20 History rosuvastatin 10 mg PO DAILY 02/15/20 02/15/20 History Allergies Allergy/AdvReac Type Severity Reaction Status Date / Time No Known Allergies Allergy Unverified 02/15/20 15:28 PFSH NPU PFSH: Social History Smoking and tobacco status: never smoked Other Psychiatric History: Other Psychiatric History: Mental health history: She has ?2 or 3? previous admissions. She said that one time she was addicted to Xanax. She didn?t know getting addicted to Xanax but there she was and that how she wound up in the hospital. She has no history of seen a counselor but she does get medications from her local nurse practitioner and her monthly visit with her psychiatrist. Family psychiatric history is positive for her father being an alcoholic. Social history: Patient grew up in [place] and is a high school graduate. She has 2 daughters. The oldest lives in [place] and has no contact with the patient. The youngest lives in [place] and has no contact with the patient. ?Their management me because things happen to them when they were young. Everyone has things happen to them.? Her best friend is Karen who is the risk control manager of the apartment building in which she lives. Legal history: She was incarcerated for a DWI in 2014 according to public record. Meds NPU Home Medications Medication Instructions Recorded Confirmed Last Taken Type Bydureon 2 mg SUBCUT Q7D 02/15/20 02/15/20 03/22/20 History dicyclomine 20 mg PO Q6H PRN 02/15/20 02/15/20 03/22/20 History ergocalciferol (vitamin D2) 50,000 unit PO Q7D 02/15/20 02/15/20 03/24/20 History hydroxyzine HCl 50 mg PO QID PRN 02/15/20 02/15/20 03/24/20 History levothyroxine 88 mcg PO DAILY 02/15/20 03/27/20 03/25/20 History metoprolol tartrate 50 mg PO BID 02/15/20 03/27/20 03/22/20 History pantoprazole 40 mg PO DAILY 02/15/20 03/27/20 03/22/20 History paroxetine HCl 40 mg PO DAILY 02/15/20 02/15/20 03/22/20 History primidone 100 mg PO BID 02/15/20 03/27/20 03/25/20 History rosuvastatin 10 mg PO BEDTIME 02/15/20 02/15/20 03/25/20 History risperidone 1 mg PO BEDTIME #30 tab 02/17/20 03/25/20 Rx Allergies Allergy/AdvReac Type Severity Reaction Status Date / Time No Known Allergies Allergy Verified 03/26/20 16:03 PFSH NPU PFSH: Medical History Adjustment disorder with mixed disturbance of emotions and conduct resolved Social History Smoking and tobacco status: never smoked Mental Status Exam MSE Comments: This is an obese, versus morbidly obese, white female, with adequate dress, grooming, and eye contact. No abnormal movements. Cooperative with exam in no mild distress. Speech was decreased rate and volume. Mood described as depressed, ?I?m not sure what I should do?; affect congruent. Thought process, organized. Thought content: patient denied any suicidal or homicidal ideation, there were no delusions reported or noted, patient denied any auditory or visual hallucinations. Attention, concentration, and memory appear intact but were not formally tested. He is alert and oriented times three. Insight and judgment are limited. 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 Continue current medications except: Start Zoloft 25 mg po qam and will likely increase to 50 mg the following morning. Continue q 15-minute check for safety. Encourage individual, group, and milieu therapy. On Sunday we will discuss with the treatment team what possibilities exist for housing referrals, though she understands that she may need to go home and await that coming to fruition. Involuntary Hold Information 96 Hour Hold: 96 Hour Involuntary Admission: No Attestations NPU Medical Necessity Statement*: Inpatient hospitalization is medically necessary and the clinically appropriate intervention at this time. We will monitor medication, and make adjustments, as indicated. She will be in the hospital for over two midnights. Likely length of stay three to five days. 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
[2020-03-27 14:00] VITALS: BP 134/64; PULSE 84; RESP 17; TEMP 37.1
[2020-03-27] MEDS: metoprolol tartrate 50 mg Tablet PO (17:30)
[2020-03-27] MEDS: primidone 50 mg Tablet 100 MG PO (17:31)
[2020-03-27] MEDS: atorvastatin 40 mg Tablet 10 MG PO (20:57)
[2020-03-27] MEDS: trazodone 50 mg Tablet PO (20:57)
[2020-03-27] MEDS: ondansetron 4 MG Tablet PO (20:57)
[2020-03-27 22:00] VITALS: BP 106/67; PULSE 82; RESP 18; TEMP 37.1; O2SAT 91
[2020-03-28 06:00] VITALS: BP 154/90; PULSE 81; RESP 18; TEMP 36.9; O2SAT 90
[2020-03-28] MEDS: levothyroxine 88 mcg Tablet PO (06:30)
[2020-03-28] MEDS: primidone 50 mg Tablet 100 MG PO ×2 (09:15→17:58)
[2020-03-28] MEDS: pantoprazole DR 40 mg Tablet PO (09:15)
[2020-03-28] MEDS: sertraline 50 mg Tablet 25 MG PO (09:15)
[2020-03-28] MEDS: metoprolol tartrate 50 mg Tablet PO (09:15)
[2020-03-28] MEDS: meloxicam 7.5 mg tablet 15 MG PO (09:15)
--- NOTE | 2020-03-28 11:47 | P.PN_ITS ---
Subjective NPU Subjective: Interval history: Pauline presented today reporting that she is doing a little better. She reports that there was a patient having a significant breakdown which was really stressful for her but otherwise she feels like she is doing okay. She denies any psychotic symptoms and could not really give me some sense about the david that is a neighbor that she reports is pounding and things of that nature. She continues to endorse a desire to possibly live somewhere else. She reports that the Zoloft works fine and that she feels she would be able to tolerate the full 50 mg dose tomorrow. Mental Status Exam MSE Comments: This is an obese, versus morbidly obese, white female, with adequate dress, grooming, and eye contact. No abnormal movements. Cooperative with exam in no acute distress. Speech was decreased rate and volume but improving. Mood described as depressed but better; affect congruent. Thought process, organized. Thought content: patient denied any suicidal or homicidal ideation, there were no delusions reported or noted, patient denied any auditory or visual hallucinations. Attention, concentration, and memory appear intact but were not formally tested. He is alert and oriented times three. Insight and judgment are limited but improving. 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 Continue current medications except: Increase Zoloft to 50 mg in the morning. Continue q 15-minute check for safety. Encourage individual, group, and milieu therapy. On Sunday we will discuss with the treatment team what possibilities exist for housing referrals, though she understands that she may need to go home and await that coming to fruition. Involuntary Hold Information 96 Hour Hold: 96 Hour Involuntary Admission: No Attestations NPU Medical Necessity Statement*: Inpatient hospitalization is medically necessary and the clinically appropriate intervention at this time. We will monitor medication, and make adjustments, as indicated. Likely length of stay 2-4 days. Coding Level of Care Code Acute Investigation Division Captain for Bhavin Mobley
[2020-03-28 14:00] VITALS: BP 115/68; PULSE 79; RESP 18; TEMP 37.1
[2020-03-28] MEDS: trazodone 50 mg Tablet PO (20:56)
[2020-03-28] MEDS: atorvastatin 40 mg Tablet 10 MG PO (20:59)
[2020-03-28 21:13] VITALS: BP 164/94; PULSE 86; RESP 18; TEMP 36.5; O2SAT 94
[2020-03-29 06:00] VITALS: BP 146/83; PULSE 84; RESP 17; TEMP 36.6; O2SAT 95
[2020-03-29] MEDS: levothyroxine 88 mcg Tablet PO (07:11)
[2020-03-29] MEDS: sertraline 50 mg Tablet PO (09:22)
[2020-03-29] MEDS: metoprolol tartrate 50 mg Tablet PO ×2 (09:22→17:20)
[2020-03-29] MEDS: meloxicam 7.5 mg tablet 15 MG PO (09:22)
[2020-03-29] MEDS: primidone 50 mg Tablet 100 MG PO ×2 (09:22→17:18)
[2020-03-29] MEDS: pantoprazole DR 40 mg Tablet PO (09:22)
[2020-03-29 13:29] VITALS: BP 138/80; PULSE 85; RESP 20; TEMP 36.6; O2SAT 97
--- NOTE | 2020-03-29 13:43 | P.PN_ITS ---
Subjective NPU Subjective: Interval history: Pauline presents today doing better on the increased dose of Zoloft and feeling optimistic about moving forward. Clearly she benefitted from the social aspect of the unit and is identifying that is an aspect of her life she is going to have to address, figuring out a way to have social options so she does not feel isolated in her living space. She has worked with the social media community manager as to what possibilities exist in this limited environment with COVID. Otherwise she is feeling better and ready to move forward. We discussed the risks, benefits, and alternatives of her discharging tomorrow, and she understood and agreed to proceed with a plan for discharge in the morning. Mental Status Exam MSE Comments: This is an obese, versus morbidly obese, older, white female, with adequate dress, grooming, and eye contact. No abnormal movements. Cooperative with exam in no acute distress. Speech was more normal rate and volume. Mood described as better; affect congruent. Thought process, organized. Thought content: patient denied any suicidal or homicidal ideation, there were no delusions reported or noted, patient denied any auditory or visual hallucin ations. Attention, concentration, and memory appeared intact but were not formally tested. Alert and oriented times three. Insight and judgment are fair and improving. 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 Continue current medications except: Continue q 15-minute check for safety. Encourage individual, group, and milieu therapy. On Sunday we will discuss with the treatment team what possibilities exist for housing referrals, though she understands that she may need to go home and await that coming to fruition. Involuntary Hold Information 96 Hour Hold: 96 Hour Involuntary Admission: No Attestations NPU Medical Necessity Statement*: Inpatient hospitalization is medically necessary and the clinically appropriate intervention at this time. We will monitor medication, and make adjustments, as indicated. Likely length of stay 1-3 days. Coding Level of Care Code Acute Process Plant Operator for Bhavin Mobley
--- NOTE | 2020-03-29 15:21 | PC.SOCIAL ---
Important Medicare Message Updated previously signed page 2 of Important Medicare Message. Updated copy provided to patient.
[2020-03-29 20:47] VITALS: BP 131/75; PULSE 80; RESP 17; TEMP 37; O2SAT 94
[2020-03-29] MEDS: atorvastatin 40 mg Tablet 10 MG PO (20:59)
[2020-03-29] MEDS: trazodone 50 mg Tablet PO (21:00)
--- NOTE | 2020-03-29 21:00 | PC.NURSE ---
TRAZODONE PT REQUESTING SLEEP AID. ADMINISTERED TRAZODONE 50 MG PO FOR SLEEP. WILL MONITOR FOR MEDICATION EFFECTIVENESS.
[2020-03-30 06:00] VITALS: BP 155/78; PULSE 76; RESP 18; TEMP 36.5; O2SAT 94
[2020-03-30] MEDS: sertraline 50 mg Tablet PO (09:02)
[2020-03-30] MEDS: pantoprazole DR 40 mg Tablet PO (09:02)
[2020-03-30] MEDS: primidone 50 mg Tablet 100 MG PO (09:02)
[2020-03-30] MEDS: levothyroxine 88 mcg Tablet PO (09:02)
[2020-03-30] MEDS: metoprolol tartrate 50 mg Tablet PO ×2 (09:02→17:24)
[2020-03-30] MEDS: meloxicam 7.5 mg tablet 15 MG PO (09:02)
--- NOTE | 2020-03-30 13:42 | P.DS_ITS ---
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 She reports that she probably was overly optimistic about how things would turn around, plus she did not like the way the medication seemed to feel. She reported that she was feeling overwhelmed and was dealing with a neighbor who was doing odd things like pounding on the ceilings and things of that nature. She is reporting she could hear people talking on her roof. She reports it is unclear to her whether that is real or not. It in some way has a relation to her not really liking to live alone and she states that she may have identified that she needs to go to some kind of assisted living arrangement or something like that. We had a long discussion about some of the challenges to that plan in the current COVID-19 crisis, and she understood. She reports there have not been significant changes since she was evaluated by Dr. Grey on February 15. An excerpt from that hospitalization is included. She endorses depression and anxiety and denies that she is currently on anything that is helping her with those issues. We discussed the possibility of adding a mood stabilizer tomorrow, and she is considering that possibility, but wants to really focus on our discussion about the risks, benefits, and alternatives of initiating Zoloft. She understood and agreed to proceed as is documented in this note. She did report some suicidal thoughts, both in the emergency room and currently, but endorses the ability to contract for safety on the unit. Per [facility] eval about 2 weeks ago: History of Present Illness Chief complaint: ?I could take hydroxyzine. About 20 pills would do it.? History of present illness: Pauline Coker is a 64-year-old woman who was brought to the emergency room by police after she complained that there was a man on the roof next door to her shouting obscenities at her. She reports daily suicidal ideation. She knows that she could kill herself by taking hydroxyzine. She says that 20 pills would kill her and she has more than 100 pills at home. She denies presence of auditory or visual hallucinations. She denies feelings of hopelessness or worthlessness. She is bored. But she has been hedonic capac ity. She reports difficulty sleeping. She says that she weighs in TV goes off at midnight. When she goes to sleep and wakes up at noon the next morning. She is in the active care of psychiatrist Rachel Hernandez. She says the only antidepressant that helped her Paxil and Cymbalta. She is taking Paxil 40 mg daily at this time. She enjoys getting up in the morning and watching TV all day. She enjoys reality shows. She says she is tired of living where she lives. She has nothing to do and she has no friends. Her primary hope during this admission is that the perinatal social worker will find her some place to live and some more help. She says she would like to live in a long-term or a assisted. However she values her independence and takes pride in the fact that she goes wherever she wants when she wants to. 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 She makes vague reference to a history of alcohol abuse. She does admit having purchased a bottle of vodka last week. Her urine drug screen was negative for alcohol on presentation. She is does say that she takes a drink now and then but does not feel that she has an alcohol problem now. She denies signs or symptoms of alcohol withdrawal. Urine drug screen was also positive for PCP but she is confused about where that could?ve come from and she denies all illicit drug use. ER report: HPI Narrative: This 64-year-old female patient with a history of depression presents to the emergency department with concerns of worsening depression and wanting to hurt her neighbor. She claims that every night for the last month or so her neighbor climbs on his roof and is making noise and has threatened to shoot people who he claims are coming to bother him. He has not threatened this patient. Last night she says she saw the neighbor on his roof and she called law enforcement, however when they arrived they did not see him and they left. She is not sleeping and would like an adjustment of her antidepressants. Laboratory Tests 02/15/20 02/15/20 14:53 15:10 Urine Opiates Screen Negative Ur Barbiturates Screen Negative Ur Phencyclidine Scrn Positive H Ur Amphetamines Screen Negative U Benzodiazepines Scrn Negative Urine Cocaine Screen Negative U Marijuana (THC) Screen Negative Ethyl Alcohol < 10 Mental health history: She has ?2 or 3? previous admissions. She said that one time she was addicted to Xanax. She didn?t know getting addicted to Xanax but there she was and that how she wound up in the hospital. She has no history of seen a counselor but she does get medications from her local nurse practitioner and her monthly visit with her psychiatrist. Family psychiatric history is positive for her father being an alcoholic. Meds NPU Home Medications Medication Instructions Recorded Confirmed Type dicyclomine 20 mg PO Q6H PRN 02/15/20 02/15/20 History ergocalciferol (vitamin D2) 50,000 unit PO Q7D 02/15/20 02/15/20 History exenatide microspheres [Bydureon] 2 mg SUBCUT Q7D 02/15/20 02/15/20 History hydroxyzine HCl 50 mg PO QID PRN 02/15/20 02/15/20 History levothyroxine 88 mcg PO DAILY 02/15/20 02/15/20 History metoprolol tartrate 50 mg PO BID 02/15/20 02/15/20 History pantoprazole 40 mg PO DAILY 02/15/20 02/15/20 History paroxetine HCl 40 mg PO DAILY 02/15/20 02/15/20 History primidone 50 mg PO BID 02/15/20 02/15/20 History rosuvastatin 10 mg PO DAILY 02/15/20 02/15/20 History Allergies Allergy/AdvReac Type Severity Reaction Status Date / Time No Known Allergies Allergy Unverified 02/15/20 15:28 PFSH NPU PFSH: Social History Smoking and tobacco status: never smoked Other Psychiatric History: Other Psychiatric History: Mental health history: She has ?2 or 3? previous admissions. She said that one time she was addicted to Xanax. She didn?t know getting addicted to Xanax but there she was and that how she wound up in the hospital. She has no history of seen a counselor but she does get medications from her local nurse practitioner and her monthly visit with her psychiatrist. Family psychiatric history is positive for her father being an alcoholic. Social history: Patient grew up in [place] and is a high school graduate. She has 2 daughters. The oldest lives in [place] and has no contact with the patient. The youngest lives in [place] and has no contact with the patient. ?Their management me because things happen to them when they were young. Everyone has things happen to them.? Her best friend is Karen who is the outpatient pharmacy manager of the apartment building in which she lives. Legal history: She was incarcerated for a DWI in 2014 according to public record. Hospital Course Hospital Course The patient presented to the emergency room reporting depression, anxiety, suicidal thoughts and frustration over things not going as well as she had hoped when she was discharged in February. There was also some question of psychosis. She was admitted to the neuropsychiatric unit for definitive treatment for those issues. On the unit, she quickly acclimated to the individual, group, and milieu therapies provided. She was initiated on Zoloft, and Trazodone was given for assistance with her sleep, and she responded quite well to those medications. There were no medications started for psychosis as it seemed that likely is was not rosario psychosis but reflected her reaction to her circumstances. She responded well to the medication. During the hospitalization, the patient had routine laboratory studies which were within normal limits, except for a few outliers. Additionally, he had a general medical evaluation which was within normal limits and revealed no new acute processes. Discharge Summary At the time of discharge the patient denied all lethality, was absent psychosis, and mood and anxiety were well managed. The patient endorsed a plan to follow- up with outpatient services, as recommended. She was evaluated and deemed to be absent credible lethality, and had achieved the maximum benefit from an inpatient hospitalization, and so she was discharged. Involuntary Hold Information 96 Hour Hold: 96 Hour Involuntary Admission: No Mental Status Exam MSE Comments: This is an obese vs. morbidly obese, white female, with adequate dress, grooming, and eye contact. No abnormal movements. Cooperative with exam in no acute distress. Speech was normal rate and volume. Mood described as pretty good; affect congruent. Thought process, organized. Thought content: patient denied any suicidal or homicidal ideation, there were no delusions reported or noted, patient denied any auditory or visual hallucinations. Attention, concentration, and memory appeared intact but none were formally tested. She is alert and oriented times three. Insight and judgment are fair and improving. Discharge Data Vitals: Last Vital Signs Temp 97.7 F 03/30/20 06:00 Pulse 76 03/30/20 06:00 Resp 18 03/30/20 06:00 BP 155/78 03/30/20 06:00 Pulse Ox 94 03/30/20 06:00 Discharge Plan Discharge Patient Disposition: Home, Self-Care Condition: Stable Prescriptions: New trazodone 50 mg Tablet 50 mg PO BEDTIME PRN (Reason: Sleep) 30 Days Qty: 30 RF: 1 sertraline 50 mg Tablet 50 mg PO DAILY 30 Days Qty: 30 RF: 1 meloxicam 15 mg tablet 15 mg PO DAILY 30 Days Qty: 30 RF: 1 Continued primidone 50 mg tablet 100 mg PO BID RF: 0 hydroxyzine HCl 50 mg tablet 50 mg PO QID PRN (Reason: Anxiety) RF: 0 levothyroxine 88 mcg tablet 88 mcg PO DAILY RF: 0 dicyclomine 20 mg tablet 20 mg PO Q6H PRN (Reason: Stomach Cramps) RF: 0 metoprolol tartrate 50 mg tablet 50 mg PO BID RF: 0 ergocalciferol (vitamin D2) 1,250 mcg (50,000 unit) capsule 50,000 unit PO Q7D RF: 0 rosuvastatin 10 mg tablet 10 mg PO BEDTIME RF: 0 Bydureon 2 mg/0.65 mL pen injector 2 mg SUBCUT Q7D RF: 0 pantoprazole 40 mg Tablet,Delayed Release (Dr/Ec) 40 mg PO DAILY RF: 0 Discontinued paroxetine HCl 40 mg tablet 40 mg PO DAILY RF: 0 risperidone 1 mg Tablet 1 mg PO BEDTIME Qty: 30 RF: 4 Discharge Orders: Discharge Order (Routine); Ordered 03/30/20 Ordered By: Balbir Escobedo Referrals: [facility] [Other] (Continue your services with Rachel Humphreys, clinical psychologist. You said you had an upcoming appointment already scheduled.) [facility] [Other] - 1-3 days (Follow up with Chantale Haider for continued medication management) Discharge Diet: Regular Discharge Activity: Resume usual activity Patient Instructions: Trazodone (By mouth), Sertraline (By mouth), Meloxicam (By mouth), Depression (DC), Brief Psychotic Disorder (DC) Activity Restrictions/Additional Instructions: Assisted Living: [facility] [address] [place] [address] or [phone] [facility] [address] [place] [address] Call for information Discharge Date/Time: 03/30/20 17:51 Discharge Attestations NPU 2 Time Spent in Discharge Care*: less than 30 min Specific Discharge Activities: Specific discharge activities: educating patient, discussing with case coordinator/social workers/dc planners, documenting/other paperwork and evaluating patient/reviewing data Coding Level of Care Code Acute In Home Tutor for g Fwd Diagnoses Adjustment disorder with mixed disturbance of emotions and conduct F43.25 Major depressive disorder F32.9 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
[2020-03-30 17:00] VITALS: BP 155/78; PULSE 76; RESP 18; TEMP 36.5; O2SAT 94
== END 2020-03-30 17:51 | disposition home or self-care (01) | DRG 882 ==
LOC: ER 16:09 → NP 18:38
PROVIDERS: Emergency Medicine; Admitting Provider Psychiatry & Neurology Psychiatry; PCP Family Medicine; Visit Provider Psychiatry & Neurology Psychiatry
DX: F43.25 Adjustment disorder with mixed disturbance of emotions and conduct (principal); F23 Brief psychotic disorder; R45.851 Suicidal ideations; Z68.41 Body mass index [BMI] 40.0-44.9, adult; F32.9 Major depressive disorder, single episode, unspecified; F16.90 Hallucinogen use, unspecified, uncomplicated; Z81.1 Family history of alcohol abuse and dependence; E66.01 Morbid (severe) obesity due to excess calories; Z91.19 Patient's noncompliance with other medical treatment and regimen
CPT/HCPCS: 12345; 36415; 80053; 80306; 80307; 81001; 84443; 85025; 85610; 96372; 99282; J3486; Q0162